=== PATIENT | female | born 1985 ===

== ENCOUNTER 2017-02-19 19:06 | Emergency (ER) | payer OTHER ==
--- NOTE | ~2017-02-19 | ER ---
PATIENT'S NAME: [facility] AGE: 31 Y [address] ROOM: [place] [address] LOCATION: [facility] ADMIT DATE: 02/19/2017 ER/Outpatient Report DISCHARGE DATE: 02/19/2017 FAMILY PHYSICIAN: Paulo Cohen MD ATTENDING PHYSICIAN: Paulo Montgomery Time of arrival: 1906 hours. Time of Evaluation: 1915 hours. CHIEF COMPLAINT: Right leg laceration. HISTORY OF PRESENT ILLNESS: This is a 31-year-old female, who presents to the ER with a left leg laceration. It happened just prior to arrival. The patient states she was cleaning at a bank, and she was throwing out the trash when something in the trash sack cut her in the leg, causing a laceration to her right calf. She states that she is not up-to-date on her tetanus shot. She denies any other injury at this time. ALLERGIES: NO KNOWN ALLERGIES. MEDICATIONS: None. PAST MEDICAL HISTORY: Negative. PAST SURGERIES: None. SOCIAL HISTORY: Drinks alcohol occasionally. Denies any smoking use. REVIEW OF SYSTEMS: CONSTITUTIONAL: Denies any change in weight or fatigue. MUSCULOSKELETAL: No weakness or myalgias. SKIN: She has a laceration to her left leg. PHYSICAL EXAMINATION: VITAL SIGNS: Height 5 feet 8 inches stated, blood pressure is 152/67, pulse 109, respirations 20, temperature 98.5 degrees tympanically. GENERAL: Alert, anxious, well-developed female, in no obvious distress. EXTREMITIES: No clubbing or cyanosis. She does have full range of motion of PATIENT'S NAME: [facility] AGE: 31 Y [address] ROOM: [place] [address] LOCATION: [facility] ADMIT DATE: 02/19/2017 ER/Outpatient Report DISCHARGE DATE: 02/19/2017 FAMILY PHYSICIAN: Paulo Cohen MD ATTENDING PHYSICIAN: Paulo Montgomery all limbs. SKIN: She has a 3 cm laceration noted to the medial aspect of her left calf. It is not actively bleeding at this time. LABORATORY DATA AND X-RAYS: None were done. IMPRESSION: 3 cm laceration to left medial calf. ASSESSMENT AND PLAN: I did numb the site with 1% lidocaine with epinephrine. Cleansed the site thoroughly with normal saline and Betadine and repaired the laceration using 4- 0 Ethilon. The patient did tolerate this well. We did place antibiotic ointment and bandage to the leg. We did update her on her tetanus shot, and we will dismiss her to home. She is to follow up with her primary care physician in 7 to 10 days. The patient and the patient's understand and agree with care. ALEX WHARTON PA-C FOR MD RHONDA MCKNIGHT/ayla /[id number] d: t: 02/20/17 2255, OUTPATIENT REPORT
== END 2017-02-19 19:39 | disposition disaster alternative care site (69) ==
LOC: GACC 19:06
PROC: 0HQLXZZ Repair Left Lower Leg Skin, External Approach (ICD-10-PCS; principal; 2017-02-19)
DX: S81.812A Laceration without foreign body, left lower leg, initial encounter (principal); Z23 Encounter for immunization; W26.8XXA Contact with other sharp object(s), not elsewhere classified, initial encounter